=== PATIENT | female | born 1960 | race Caucasian/White ===

== ENCOUNTER 2021-03-28 18:20 | Emergency (ER) | payer BC, SELFPAY ==
--- NOTE | ~2021-03-28 | XR_ITS ---
EXAMINATION: XR wrist LT min 3V DATE: 03/28/2021 18:48 INDICATION: Generalized left wrist pain post 4 with fall. TECHNIQUE: Posteroanterior, ulnar deviation, oblique, and lateral views of the left wrist were obtain ed. COMPARISON: none FINDINGS: Bone alignment is normal. No fracture. Mild polyarticular osteoarthritis with typical distribution at the triscaphe, first carpometacarpal and first metacarpophalangeal and multiple interphalangeal join ts. IMPRESSION: 1. Mild polyarticular osteoarthritis with typical distribution at the left hand. No acute osseous abn ormality. Reviewed, dictated and finalized at location A. IMPRESSION: 1. Mild polyarticular osteoarthritis with typical distribution at the left hand . No acute osseous abnormality.
--- NOTE | 2021-03-28 18:22 | ED.UPPEXIN ---
HPI - Extremity Injury (Upper) General Chief Complaint: Extremity Injury, Lower Stated Complaint: left wrist injury Time Seen by Provider: 03/28/21 19:09 Source: patient and RN notes reviewed Mode of arrival: ambulatory Limitations: no limitations History of Present Illness HPI narrative: 61-year-old female presents with concern for pain and swelling to the left medial wrist. Reports she was struck by a recycling bin in the wrist yesterday. Reports since then she has had pain and swelling. Reports pain radiates to the hand and up the elbow with range of motion. Reports she is used ice, denies other intervention. MD complaint: injury to: left and wrist Related Data Home Medications Medication Instructions Recorded Confirmed armodafinil 250 mg tablet 250 mg PO QAM 08/01/20 03/28/21 desloratadine 5 mg tablet 5 mg PO DAILY 08/01/20 03/28/21 lamotrigine 25 mg tablet 75 mg PO DAILY 08/01/20 03/28/21 omeprazole 20 mg capsule,delayed 20 mg PO DAILY 08/01/20 03/28/21 release vilazodone 20 mg tablet 20 mg PO DAILY 08/01/20 03/28/21 atorvastatin 40 mg PO DAILY 03/28/21 03/28/21 buspirone 30 mg PO DAILY 03/28/21 03/28/21 Allergies Allergy/AdvReac Type Severity Reaction Status Date / Time No Known Allergies Allergy Verified 08/01/20 10:59 Review of Systems Review of Systems: CONSTITUTIONAL: Denies malaise, chills, sweats, or fever. SKIN: Denies lacerations, abrasions, redness, warmth MUSCULOSKELETAL: Reports left wrist pain, swelling NEUROLOGIC: Denies numbness, weakness All systems reviewed & are unremarkable except as noted in HPI and below PMFSH Social History Social History (Updated 08/01/20 @ 11:00 by Michelle Pardo MA) Smoking packs per day: 2 Smoking cigarettes per day: 40.0 Smoking status: Current every day smoker Gender identity (if verbalized by the patient): Female Comments At time of signature, agree with nursing past medical, surgical, social and family history. There is no relevant family history pertinent to the presenting complaint Exam Narrative: GENERAL: Well-appearing, well-nourished, and in no acute distress. HEAD: Normocephalic, atraumatic. EYES: PERRLA, conjunctivae clear NECK: Supple. CHEST: Speaks in full sentences. No respiratory distress. HEART: Regular rate and rhythm. Normal and equal peripheral pulses. EXTREMITIES: Left wrist, hand, digits have normal strength and sensation, normal range of motion. Mild medial edema, no ecchymosis. 5/5 strength with wrist and digit flexion and extension. Normal sensation with sensitivity to light touch and pain. Medial tenderness. No open wounds, no skin tenting, no devitalized tissue or atrophy, no trophic changes, no obvious deformity, alignment normal, nearby joints and structures intact. Distal pulses palpable and equal bilaterally, skin warm, dry, pink. Capillary refill less than 3 seconds. SKIN: Warm, dry, no rash. NEURO: Alert and oriented x3. PSYCH: Normal mood and affect Course Course Emergency Course: Patient is aware of diagnosis, understands and agrees to treatment plan. Anticipatory guidance given. Patient agrees to follow-up as directed and is aware of reasons to seek care at the emergency department. Portions of this record may have been created with voice recognition software Vital Signs Vital signs: Reviewed. Patient has history of hypertension MDM - Extremity Injury (Upper) Imaging Data My impression: Images reviewed, interpreted by radiologist, agree, see report. Radiologist's impression: EXAMINATION: XR wrist LT min 3V DATE: 03/28/2021 18:48 INDICATION: Generalized left wrist pain post 4 with fall. TECHNIQUE: Posteroanterior, ulnar deviation, oblique, and lateral views of the left wrist were obtained. COMPARISON: none FINDINGS: Bone alignment is normal. No fracture. Mild polyarticular osteoarthritis with typical distribution at the triscaphe, first carpometacarpal and first metacarpophalangeal and multiple interph
[2021-03-28 18:26] VITALS: BP 147/88; PULSE 98; RESP 20; TEMP 36.8; O2SAT 99
== END 2021-03-28 19:20 | disposition home or self-care (01) ==
PROVIDERS: Emergency Provider Nurse Practitioner; PCP Internal Medicine
DX: S60.212A Contusion of left wrist, initial encounter (principal); F17.210 Nicotine dependence, cigarettes, uncomplicated; W22.8XXA Striking against or struck by other objects, initial encounter
CPT/HCPCS: 73110; 99213; G0463